=== PATIENT | male | born 1985 | race Caucasian/White ===

== ENCOUNTER 2016-05-11 20:49 | Emergency (ER) | payer OTHER ==
[~2016-05-11] VITALS: Ht 154.9 cm; Wt 43.9 kg
[~2016-05-11 20:49] MED LIST: ACETAMINOP160 MG/51 GT; ALER-CAP25 M1 PEG; AMMONIUM LACTA140 GM TP; ANTI-DIARRH1 MG/5 ML GT; ATARAX,VISTARIL50 MG GT; ATIVAN INTE2 MG/1 ML GT; ATIVAN INTE2 MG/1 ML PO; ATROVENT 00.5 MG/2.5 IH; AUGMENTIN875 MG PO; Atarax,Vistaril PEG; Augmentin GT; BACTROBAN OINTM22 GM TP; CETAPHIL237 ML TP; CHILDREN'S MOT120 M2 GT; CHILDREN'S160 MG/15 GT; CHILDREN'S5 MG/5 M1 GT; CHILDREN'S5 MG/5 ML GT; CIPROFLOXACIN500 M1 GT; CLARITIN,ALAVAR10 MG GT; CLONAZEPAM1 MG GT; CLONAZEPAM1 MG PO; DESYREL 150 MG150 MG GT; DIAZEPAM10 MG GT; DIAZEPAM5 MG/5 ML GT; DIAZEPAM5 MG/5 ML PO; DIPHEDRYL12.5 MG/1 GT; DIPHENHIST12.5 MG/5 GT; DIPHENHIST12.5 MG/5 PO; DIPROSONE 0.05%15 GM TP; DULCOLAX10 MG PR; DUONEB 2.5-0.5 M3 ML IH; DUONEB3 ML IH; Desyrel 150 MG Tab PEG; Desyrel PO; EAR WAX DROPS15 ML BOTH EARS; GABAPENTIN250 MG/5 M GT; HIBICLENS118 ML TP; HYDROXYZINE HCL50 M1 GT; HYDROXYZINE HCL50 MG GT; HYDROXYZINE PAM50 MG GT; IBUPROFEN100 MG/5 M GT; KLONOPIN1 MG GT; KlonoPIN PO; LEVAQUIN750 MG PO; LOPERAMIDE1 MG/5 ML GT; LOPERAMIDE1 MG/5 ML PO; LORATADINE5 MG/5 M3 PO; MAPAP160 MG/51 PEG; MELATONIN3 MG GT; MELATONIN3 MG PO; MILK OF MAG W/360 ML GT; MILK OF MAGN PO; Melatonin PEG; Milk Of Magnesia,MOM PEG; NEURONTIN50 MG/ML GT; NEURONTIN50 MG/ML PEG; NEURONTIN50 MG/ML PO; PEDIATRIC ELEC237 ML GT; PHENERGAN-CODE120 ML GT; PHENERGAN25 MG PR; PHILLIPS'400 MG/5 M GT; PREDNISOLO15 MG/5 M1 PO; PREVACID SOLUTA30 M1 GT; PRILOSEC20 MG GT; PROMETHAZINE HC25 MG PR; PROMETHAZINE12.5 M1 PR; PROMETHEGAN25 MG PR; Q-TUSSIN DM SY240 ML GT; Q-TUSSIN DM SY240 ML PO; Q-TUSSIN100 MG/5 M GT; RANITIDINE15 MG/1 ML GT; ROBITUSSIN100 MG/5 M GT; Robitussin DM PEG; SILVADENE,SSD,T20 GM TP; SINGULAIR10 MG GT; SINGULAIR10 MG PO; SSD25GM TP; Singulair PEG; TRAZODONE HCL150 MG GT; TRAZODONE HCL150 MG PO; TRIPLE ANTIB28.35 GM TP; TYLENOL FO160 MG/5 M GT; VISTARIL50 MG GT; VISTARIL50 MG PO; Vancocin Oral Solution PO; ZANTAC15 MG/ML GT; ZEASORB-AF70 G1 TP; ZYVOX20 MG/1 ML GT
[2016-05-11 21:52] LABS: INFLUENZA A VIRAL ANTIGEN NEGATIVE; INFLUENZA B VIRAL ANTIGEN NEGATIVE
[2016-05-11 22:12] LABS: HEMATOCRIT 36.9 % (38.0-50.0); MCH 26.6 PG (29.0-34.0); MCHC 32.2 G/DL (30.0-36.0); MCV 82.4 FL (86-99); MEAN PLAT.VOLUME 12.3 uM^3 (9.0-12.4); PLATELET COUNT 230 K/uL (156-360); RBC DIS.WIDTH-CV 14.8 % (11.8-14.6); RBC DIS.WIDTH-SD 43.8 % (39-53); RED BLOOD COUNT 4.48 M/uL (4.00-5.50)
[2016-05-11 22:21] LABS: CHLORIDE 106 mEq/L (99-109); POTASSIUM 4.3 mEq/L (3.7-5.4); SODIUM 140 mEq/L (136-147)
[2016-05-11 22:22] LABS: GLUCOSE 81 mg/dL (70-99)
[2016-05-11 22:24] LABS: ANION GAP 10 MEQ/L (2-14)
[2016-05-11 22:26] LABS: GFR ESTIMATE (CALCULATED) > 59 mL/min/
[2016-05-11 22:27] LABS: UREA NITROGEN (BUN) 25 mg/dL (9-23)
[2016-05-12 00:08] VITALS: BP 103/73
== END 2016-05-12 00:09 | disposition home or self-care (01) ==
LOC: EME → EDBD 20:49 → EME 05-12 00:09
PROVIDERS: Emergency Medicine
DX: J06.9 Acute upper respiratory infection, unspecified (principal); F79 Unspecified intellectual disabilities; G43.909 Migraine, unspecified, not intractable, without status migrainosus; Z93.0 Tracheostomy status; G80.9 Cerebral palsy, unspecified; H54.8 Legal blindness, as defined in USA
CPT/HCPCS: 71010; 80048; 85027; 87502; 99281; 99283

== ENCOUNTER → 2016-06-23 | Outpatient (CLI) | payer OTHER ==
[2016-06-23 12:47] VITALS: BP 118/75
== END | disposition home or self-care (01) ==
LOC: OPR 11:44 → EDSTATUS 12:00 → OPR 12:00
PROC: 0D20XUZ Change Feeding Device in Upper Intestinal Tract, External Approach (ICD-10-PCS; principal; 2016-06-23)
DX: Z43.4 Encounter for attention to other artificial openings of digestive tract (principal)
CPT/HCPCS: C1769; J2250

== ENCOUNTER 2016-08-12 17:33 | Emergency (ER) | payer OTHER ==
[2016-08-12 20:42] VITALS: BP 112/102
== END 2016-08-12 20:46 | disposition home or self-care (01) ==
LOC: EME 17:33
DX: K94.23 Gastrostomy malfunction (principal); G80.9 Cerebral palsy, unspecified
CPT/HCPCS: 99281; 99284

== ENCOUNTER 2016-10-11 09:28 | Emergency (ER) | payer OTHER ==
[~2016-10-11] VITALS: Ht 208.3 cm; Wt 52.0 kg
[2016-10-11 19:22] VITALS: BP 95/60
== END 2016-10-11 19:23 | disposition home or self-care (01) ==
LOC: EME 09:28
PROC: 0D20XUZ Change Feeding Device in Upper Intestinal Tract, External Approach (ICD-10-PCS; principal; 2016-10-11)
DX: K94.13 Enterostomy malfunction (principal); F72 Severe intellectual disabilities; G80.9 Cerebral palsy, unspecified; R56.9 Unspecified convulsions
CPT/HCPCS: 99281; 99284; C1769; J2250

== ENCOUNTER 2016-11-25 15:17 | Emergency (ER) | payer OTHER ==
[2016-11-25 20:52] VITALS: BP 112/88
== END 2016-11-25 20:52 | disposition home or self-care (01) ==
LOC: EME 15:17
PROC: 0D20XUZ Change Feeding Device in Upper Intestinal Tract, External Approach (ICD-10-PCS; principal; 2016-11-25)
DX: T85.598A Other mechanical complication of other gastrointestinal prosthetic devices, implants and grafts, initial encounter (principal); G80.9 Cerebral palsy, unspecified
CPT/HCPCS: 99281; 99284; C1766; J1630; J2060

== ENCOUNTER 2017-01-24 21:03 | Emergency (ER) | payer OTHER ==
[~2017-01-24] VITALS: Ht 121.9 cm; Wt 36.7 kg
[2017-01-24 22:59] LABS: INSTRUMENT ABS NEUTROPHIL CT 6.7 K/uL
[2017-01-24 23:04] LABS: HEMATOCRIT ND % (38.0-50.0); MCH ND PG (29.0-34.0); MCHC ND G/DL (30.0-36.0); MCV ND FL (86-99); MEAN PLAT.VOLUME ND uM^3 (9.0-12.4); PLATELET COUNT ND K/uL (156-360); RBC DIS.WIDTH-CV ND % (11.8-14.6); RBC DIS.WIDTH-SD ND % (39-53); RED BLOOD COUNT ND M/uL (4.00-5.50); WHITE BLOOD COUNT ND K/uL (4.1-10.2)
[2017-01-24 23:04] LABS: INFLUENZA A VIRAL ANTIGEN NEGATIVE; INFLUENZA B VIRAL ANTIGEN NEGATIVE
[2017-01-24 23:05] LABS: BASOPHIL COUNT ND K/uL (0-0.1); EOSINOPHIL (%) ND % (0-5); EOSINOPHIL COUNT ND K/uL (0-0.3); IMMATURE GRANULOCYTE (%) ND % (0.0-0.7); IMMATURE GRANULOCYTE COUNT ND K/uL; LYMPHOCYTE COUNT ND K/uL (1.0-2.8); MONOCYTE (%) ND % (3-12); MONOCYTE COUNT ND K/uL (0-0.8); NEUTROPHIL (%) ND % (45-76); NEUTROPHIL COUNT ND K/uL (1.8-6.4)
[2017-01-24 23:06] LABS: NRBC (%) ND /100 WBC (0-0)
[2017-01-24 23:10] LABS: CHLORIDE 102 mEq/L (99-109); POTASSIUM 4.2 mEq/L (3.7-5.4); SODIUM 134 mEq/L (136-147)
[2017-01-24 23:13] LABS: GLUCOSE 99 mg/dL (70-99)
[2017-01-24 23:14] LABS: ANION GAP 9 MEQ/L (2-14); TOTAL BILIRUBIN 0.3 mg/dL (0.0-1.0)
[2017-01-24 23:16] LABS: ALKALINE PHOSPHATASE 93 IU/L (3-129); GFR ESTIMATE (CALCULATED) > 59 mL/min/
[2017-01-24 23:17] LABS: UREA NITROGEN (BUN) 19 mg/dL (9-23)
[2017-01-24 23:23] LABS: EOSINOPHIL (%) 0.1 % (0-5); HEMATOCRIT 36.7 % (38.0-50.0); IMMATURE GRANULOCYTE (%) 0.3 % (0.0-0.7); INSTRUMENT ABS NEUTROPHIL CT 7.8 K/uL; MCH 27.2 PG (29.0-34.0); MCHC 32.4 G/DL (30.0-36.0); MCV 83.8 FL (86-99); MEAN PLAT.VOLUME 12.1 uM^3 (9.0-12.4); MONOCYTE (%) 8.8 % (3-12); MONOCYTE COUNT 0.9 K/uL (0-0.8); NEUTROPHIL (%) 80.2 % (45-76); NEUTROPHIL COUNT 7.8 K/uL (1.8-6.4); PLATELET COUNT 180 K/uL (156-360); RBC DIS.WIDTH-CV 13.1 % (11.8-14.6); RBC DIS.WIDTH-SD 40.4 % (39-53); RED BLOOD COUNT 4.38 M/uL (4.00-5.50); WHITE BLOOD COUNT 9.7 K/uL (4.1-10.2)
[2017-01-24 23:35] LABS: ADD MIUA? NO; BILIRUBIN NEGATIVE; BLOOD NEGATIVE; COLOR YELLOW ((YELLOW)); GLUCOSE (STRIP) >=500; KETONES NEGATIVE; LEUKOCYTES NEGATIVE; NITRITE NEGATIVE; PROTEIN (STRIP) NEGATIVE; SPECIFIC GRAVITY 1.011 (1.000-1.030); UCUL ADDED? NO; UROBILINOGEN 0.2 MG/DL (0.2-1.0)
[2017-01-25 01:26] VITALS: BP 107/73
== END 2017-01-25 02:27 | disposition home or self-care (01) ==
LOC: EME 21:03
PROVIDERS: Emergency Medicine
DX: G80.9 Cerebral palsy, unspecified (principal); R56.9 Unspecified convulsions; Z43.1 Encounter for attention to gastrostomy; F41.9 Anxiety disorder, unspecified; Q89.8 Other specified congenital malformations
CPT/HCPCS: 71010; 74177; 80053; 81003; 83605; 85025; 85025 91; 87040; 87502; 99281; 99285; J7030

== ENCOUNTER → 2017-03-22 | Outpatient (CLI) | payer OTHER | END | disposition home or self-care (01) | LOC: OPR 09:14 → EDSTATUS 10:00 → OPR 03-28 13:30 → RAD 03-28 13:30 | PROC: 0D20XUZ Change Feeding Device in Upper Intestinal Tract, External Approach (ICD-10-PCS; principal; 2017-03-22) | DX: Z43.4 Encounter for attention to other artificial openings of digestive tract (principal); R13.10 Dysphagia, unspecified | CPT/HCPCS: C1769; J2250 ==

== ENCOUNTER → 2017-07-12 | Outpatient (CLI) | payer OTHER ==
[~2017-07-12] VITALS: Ht 121.9 cm; Wt 37.8 kg
[~2017-07-12] MED LIST changes: +JEVITY 1.2 CAL237 ML PO; +JOCK ITCH RELIE15 GM TP; +PHENERGAN-CODE120 ML PO; +[UNRECOGNIZED DRUG - OTHER] TP
== END | disposition home or self-care (01) ==
LOC: OPR 09:57 → EDSTATUS 10:00
PROC: 0D20XUZ Change Feeding Device in Upper Intestinal Tract, External Approach (ICD-10-PCS; principal; 2017-07-12)
DX: Z43.1 Encounter for attention to gastrostomy (principal); G80.9 Cerebral palsy, unspecified; H54.8 Legal blindness, as defined in USA
CPT/HCPCS: 87641; C1769

== ENCOUNTER → 2017-10-10 | Outpatient (CLI) | payer OTHER ==
[~2017-10-10] VITALS: Ht 152.4 cm; Wt 38.6 kg
[~2017-10-10] MED LIST changes: +ANTI-DIARR1 MG/7.5 M PO; +DEBROX15 ML BOTH EARS; +DUONEB 2.5-0.5 M3 ML AEROSOL; +[UNRECOGNIZED DRUG - OTHER] TP
[2017-10-10 12:37] VITALS: BP 107/55
[2017-10-10 14:26] LABS: BASOPHIL COUNT 0.1 K/uL (0-0.1); EOSINOPHIL (%) 3.9 % (0-5); EOSINOPHIL COUNT 0.2 K/uL (0-0.3); HEMATOCRIT 39.5 % (38.0-50.0); HEMOGLOBIN 13.4 G/DL (12.5-16.6); LYMPHOCYTE (%) 22.1 % (15-42); LYMPHOCYTE COUNT 1.1 K/uL (1.0-2.8); MCH 28.9 PG (29.0-34.0); MCHC 33.9 G/DL (30.0-36.0); MCV 85.1 FL (86-99); MONOCYTE (%) 10.4 % (3-12); MONOCYTE COUNT 0.5 K/uL (0-0.8); NEUTROPHIL (%) 62.6 % (45-76); NEUTROPHIL COUNT 3.1 K/uL (1.8-6.4); PLATELET COUNT 218 K/uL (156-360); RBC DIS.WIDTH-CV 13.7 % (11.8-14.6); RBC DIS.WIDTH-SD 42.5 % (39-53); RED BLOOD COUNT 4.64 M/uL (4.00-5.50); WHITE BLOOD COUNT 4.9 K/uL (4.1-10.2)
[2017-10-10 14:29] LABS: ALBUMIN 3.9 g/dL (3.2-4.8)
[2017-10-10 14:30] LABS: CHLORIDE 103 mEq/L (99-109); POTASSIUM 4.2 mEq/L (3.7-5.4); SODIUM 137 mEq/L (136-147)
[2017-10-10 14:32] LABS: GLUCOSE 90 mg/dL (70-99); TOTAL PROTEIN 7.4 g/dL (6.4-8.3)
[2017-10-10 14:34] LABS: TOTAL BILIRUBIN 0.4 mg/dL (0.0-1.0)
[2017-10-10 14:35] LABS: ALKALINE PHOSPHATASE 114 IU/L (3-129)
[2017-10-10 14:36] LABS: CREATININE 0.7 mg/dL (0.6-1.3); GFR ESTIMATE (CALCULATED) > 59 mL/min/ (58.99-99999)
[2017-10-10 14:37] LABS: AST (GOT) 35 IU/L (2-34); UREA NITROGEN (BUN) 17 mg/dL (9-23)
[2017-10-10 14:39] LABS: ALT (GPT) 31 IU/L (3-49)
[2017-10-10 15:05] LABS: HDL CHOLESTEROL 75 MG/DL (Desirable>=40); NON-HDL CHOLESTEROL 90 mg/dL (Desirable<160); TOTAL CHOLESTEROL 165 mg/dL (Desirable<200); TRIGLYCERIDES 951 MG/DL (Normal: <150)
[2017-10-10 15:15] LABS: THYROTROPIN (TSH) 2.5 MIU/L (0.4-5.5)
== END | disposition home or self-care (01) ==
LOC: OPR 11:42 → AMB 11:42 → OPR 12:00 → EDSTATUS 12:00 → RAD 12:00
PROVIDERS: Internal Medicine
PROC: 0D20XUZ Change Feeding Device in Upper Intestinal Tract, External Approach (ICD-10-PCS; principal; 2017-10-10)
DX: Z43.4 Encounter for attention to other artificial openings of digestive tract (principal)
CPT/HCPCS: 80053; 80061; 83036; 84439; 84443; 85025; C1766